=== PATIENT | female | born 1975 | race African-American/Black ===

== ENCOUNTER 2017-01-08 18:54 | Emergency (ER) | payer OTHER ==
[2017-01-08 19:30] VITALS: BP 130/80; PULSE 58; TEMP 98.6; BMI 27.1
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
[2017-01-08] MEDS ORDERED: KETOROLAC TROMETHAMINE 60 MG/2 ML VIAL IM ONE (19:48)
[2017-01-08] MEDS ORDERED: KETOROLAC TROMETHAMINE 60 MG/2 ML VIAL ONE (20:03)
== END 2017-01-08 20:47 | disposition home or self-care (01) ==
LOC: FER 18:54
PROC: 3E0333Z Introduction of Anti-inflammatory into Peripheral Vein, Percutaneous Approach (ICD-10-PCS; principal; 2017-01-08)
DX: S40.011A Contusion of right shoulder, initial encounter (principal); W22.8XXA Striking against or struck by other objects, initial encounter; Y93.89 Activity, other specified; Y92.159 Unspecified place in reform school as the place of occurrence of the external cause
CPT/HCPCS: 73030-TC-RT; 99282-25

== ENCOUNTER 2017-04-29 22:33 | Emergency (ER) | payer OTHER ==
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
[2017-04-29 22:43] VITALS: BP 118/83; PULSE 55; TEMP 97.9; BMI 28.1
[2017-04-30] MEDS ORDERED: KETOROLAC TROMETHAMINE 60 MG/2 ML VIAL ONE (00:03)
[2017-04-30] MEDS ORDERED: KETOROLAC TROMETHAMINE 60 MG/2 ML VIAL IM ONE (00:03)
== END 2017-04-30 00:13 | disposition home or self-care (01) ==
LOC: FER 22:33
PROC: 3E0233Z Introduction of Anti-inflammatory into Muscle, Percutaneous Approach (ICD-10-PCS; principal; 2017-04-29)
DX: S60.221A Contusion of right hand, initial encounter (principal); X58.XXXA Exposure to other specified factors, initial encounter; Y93.89 Activity, other specified; Y92.159 Unspecified place in reform school as the place of occurrence of the external cause; Y99.0 Civilian activity done for income or pay
CPT/HCPCS: 73110-TC-RT; 73130-TC-RT; 99281-25

== ENCOUNTER 2017-11-21 12:40 | Emergency (ER) | payer OTHER ==
[2017-11-21 12:45] VITALS: BP 125/70; PULSE 70; TEMP 98.1; BMI 27.4
[2017-11-21] MEDS ORDERED: FLUORESCEIN NA 1 EA STRIP ONE (12:45)
[2017-11-21] MEDS ORDERED: TETRACAINE 0.5% OPHTH SOLN 2 ML BOTTLE ONE (12:45)
--- NOTE | 2017-11-21 13:17 | PDOC ---
History of Present Illness - General Chief Complaint: Eye Problem Stated Complaint: RIGHT EYE PAIN Time Seen by Provider: 11/21/17 12:42 History Source: Patient Exam Limitations: No Limitations - History of Present Illness Initial Comments: 11/21/17 13:21 42 year old female c/ hx of asthma p/w right eye pain. Yesterday night, the patient was trying to get her contact lenses out. Thinks she may have scratched her right eye. She went to bed and woke up with a gritty, painful sensation of the right eye. Denies changes to the visual acuity. Noted that her scleral was "bloodshot". Denies discharge. She is using her glasses now. Came in for an evaluation. Past History - Past Medical History Allergies/Adverse Reactions: Allergies Allergy/AdvReac Type Severity Reaction Status Date / Time No Known Allergies Allergy Verified 11/21/17 12:41 Home Medications: Ambulatory Orders Cholecalciferol (Vitamin D3) [Vitamin D3 -] 5,000 unit PO DAILY 11/21/17 Ketorolac Tromethamine [Acular] 1 drop OP Q6H PRN #1 drops 11/21/17 Moxifloxacin HCl [Vigamox 0.5% Eye Drops -] 1 drop NR TID #1 drops 11/21/17 Asthma: Yes COPD: No DVT: No Dementia: No Other medical history: seizures- no meds - Suicide/Smoking/Psychosocial Hx Smoking History: Never smoked Have you smoked in the past 12 months: No Hx Alcohol Use: Yes Drug/Substance Use Hx: No Substance Use Type: Alcohol Review of Systems - Review of Systems Able to Perform ROS?: Yes Comments:: 11/21/17 13:22 GENERAL/CONSTITUTIONAL: No fever or chills. No weakness. HEAD, EYES, EARS, NOSE AND THROAT: No change in vision. No sore throat. + right eye pain. CARDIOVASCULAR: No chest pain or shortness of breath. RESPIRATORY: No cough, wheezing, or hemoptysis. GASTROINTESTINAL: No nausea, vomiting, diarrhea or constipation. GENITOURINARY: No dysuria, frequency, or change in urination. MUSCULOSKELETAL: No joint or muscle swelling or pain. No neck or back pain. SKIN: No rash NEUROLOGIC: No headache, vertigo, loss of consciousness, or change in strength/ sensation. ENDOCRINE: No increased thirst. No abnormal weight change. HEMATOLOGIC/LYMPHATIC: No anemia, easy bleeding, or history of blood clots. ALLERGIC/IMMUNOLOGIC: No hives or skin allergy. *Physical Exam - Vital Signs Last Vital Signs Temp Pulse Resp BP Pulse Ox 98.1 F 70 18 125/70 100 11/21/17 12:41 18 12:41 11/21/17 12:41 11/21/17 12:41 11/21/17 12:41 - Physical Exam Comments: 11/21/17 13:23 GENERAL: Awake, alert, and fully oriented, in no acute distress HEAD: No signs of trauma EYES: PERRLA, EOMI, sclera anicteric. OD: 20/25 with glasses. Injected right conjunctiva with no discharge. OS: 20/30 with glasses Fluorescein stain demonstrates NO ronnell sign. Uptake noted in pattern of corneal abrasion (no ulcer). NO dendritic pattern appreciated. No FB identified. No contact lenses identified. ENT: Auricles normal inspection, hearing grossly normal, nares patent NECK: Normal ROM, supple EXTREMITIES: Normal range of motion, no edema. No clubbing or cyanosis. No cords, erythema, or tenderness NEUROLOGICAL: Cranial nerves II through XII grossly intact. Normal speech, normal gait SKIN: Warm, Dry, normal turgor, no rashes or lesions noted. Medical Decision Making - Medical Decision Making 11/21/17 13:24 Vital Signs Temp Pulse Resp BP Pulse Ox 98.1 F 70 18 125/70 100 11/21/17 12:41 11/21/17 12:41 11/21/17 12:41 11/21/17 12:41 11/21/17 12:41 Pt's findings are consistent with corneal abrasion. I advised patient not to use contact lenses until cleared by her eye doctor. Vigamox TID x 1 week (given pt has contact lenses hx use). NSAIDS for pain control PRN. Follow up with optho in 1 to 2 days. *DC/Admit/Observation/Transfer Diagnosis at time of Disposition: Corneal abrasion Qualifiers: Encounter type: initial encounter Laterality: right Qualified Code(s): S05.01XA - Injury of conjunctiva and corneal abrasion without foreign body, right eye, initial encounter - Discharge Dispostion Disposition: HOME Condition at time of disposition: Stable Decision to Admit order: No - Prescriptions Prescriptions: Ketorolac Tromethamine [Acular] 1 drop OP Q6H PRN #1 drops PRN Reason: Eye Pain Moxifloxacin HCl [Vigamox 0.5% Eye Drops -] 1 drop NR TID #1 drops - Referrals Referrals: Kuldeep Terry MD [Staff Physician] - - Patient Instructions Printed Discharge Instructions: DI for Corneal Abrasion Additional Instructions: Please use the Vigamox eye drops every 8 hours for 1 week. This is the antibiotics. Please complete its use. There is an eye drop called Acular. Please use as prescribed for the next 48 hours. Please do not use this beyond that until you are seen by the eye doctor. Call to schedule an appointment. - Post Discharge Activity Forms/Work/School Notes: Back to Work
[2017-11-21] MEDS ORDERED: FLUORESCEIN NA 1 EA STRIP OD ONE (13:26)
[2017-11-21] MEDS ORDERED: TETRACAINE 0.5% HCL 0.6ML DROPPER.BOTTLE OD ONE (13:26)
== END 2017-11-21 13:28 | disposition home or self-care (01) ==
LOC: FER 12:40
DX: S05.01XA Injury of conjunctiva and corneal abrasion without foreign body, right eye, initial encounter (principal); X58.XXXA Exposure to other specified factors, initial encounter; Y92.9 Unspecified place or not applicable
CPT/HCPCS: 99282-25

== ENCOUNTER 2018-03-24 23:22 | Emergency (ER) | payer OTHER ==
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
[2018-03-24 23:30] VITALS: BP 135/87; PULSE 52; TEMP 97.3; BMI 28.3
[2018-03-24] MEDS ORDERED: KETOROLAC TROMETHAMINE 60 MG/2 ML VIAL IM ONE (23:34)
[2018-03-24] MEDS ORDERED: KETOROLAC TROMETHAMINE 60 MG/2 ML VIAL ONE (23:35)
[2018-03-24] MEDS ORDERED: predniSONE 20 MG TABLET (UD) ONE (23:35)
[2018-03-24] MEDS ORDERED: predniSONE 20 MG TABLET (UD) PO ONE (23:35)
== END 2018-03-24 23:45 | disposition home or self-care (01) ==
LOC: FER 23:22
PROC: 3E0233Z Introduction of Anti-inflammatory into Muscle, Percutaneous Approach (ICD-10-PCS; principal; 2018-03-24)
DX: S29.012A Strain of muscle and tendon of back wall of thorax, initial encounter (principal); X58.XXXA Exposure to other specified factors, initial encounter; Y93.89 Activity, other specified; Y92.159 Unspecified place in reform school as the place of occurrence of the external cause; Y99.0 Civilian activity done for income or pay; J45.909 Unspecified asthma, uncomplicated
CPT/HCPCS: 99281-25